=== PATIENT | male | born 1945 | race Caucasian/White ===

== ENCOUNTER 2016-09-05 09:43 | Day surgery (SDC) | payer MEDICARE, OTHER ==
[~2016-09-05] VITALS: Ht 185.4 cm; Wt 87.0 kg
[~2016-09-05 09:43] MED LIST: ASCO500C6 PO; ASPI-973 PO; AZEL205. NS; BISO10TA PO; CHOL100045 PO; COLC0.6T52 PO; ETHA25TA PO; FERR325T40 PO; FLUT1DIS5 IH; FLUT9.9S NS; GLUC-123 PO; IPRA3AMP IH; IPRA4AER IH; KRIL500C PO; LISI10TA PO; Lactated Ringer's 1,000 ML IV SCH; MULT-1018 PO; SODI126M NS; UBID1CAP3 PO
[2016-09-05] MEDS ORDERED: Propofol 10,000 mCg/mL 20 mL Inj ONE (09:44)
[2016-09-05] MEDS ORDERED: Ketamine 10 mg/mL 20 mL Inj ONE (09:44)
[2016-09-05] MEDS ORDERED: fentaNYL-PF 50 mCg/mL 2 mL Inj ONE (09:44)
[2016-09-05 10:08] VITALS: BP 156/99; PULSE 48; RESP 14; O2SAT 98
[2016-09-05 11:43] VITALS: BP 123/83; PULSE 47; RESP 15; O2SAT 96
[2016-09-05 11:53] VITALS: BP 142/80; PULSE 49; RESP 15; O2SAT 97
[2016-09-05 12:03] VITALS: BP 146/86; PULSE 47; RESP 15; O2SAT 97
--- NOTE | 2016-09-05 12:38 | PCM.HPANE ---
Patient Data Date of Service: Sep 05, 2016 Surgeon Admitting Provider: Attending Provider:Rani Nava MD Primary Care Physician:Loan Flores MD Other Provider:Demarcus Jimenez Anesthesia Reason for Visit Anemia Ht/WT & BMI Height (Feet): 6 Height (Inches): 1 Weight (Kilograms): 87 Body Mass Index 25.00 Allergies Coded Allergies: Sulfa (Sulfonamide Antibiotics) (Verified Allergy, Intermediate, Rash, Difficulty breathing, 09/04/16) Past Anesthesia History Anesthesia History: Positive for:: Anesthesia Reactions (states he had "asthma " after surgery), Denies:: Abnormal Airway, Difficult Intubation, Fam Anesthesia Reaction, Fam Malignant Hypertherm, Malignant Hyperthermia Diabetes History Hx Diabetes?: No MRSA MRSA: No Medications Blood Thinner: Aspirin Last Dose Blood Thinner: Sep 03, 2016 Home Meds Incl Beta Danielle: No Reported Medications Gluc/Jorge-MSM#2/C/D3/Tommy/Born (Fdvovxidez-Xwpuscjwbbg-PTV Tab)1 Each Tablet1 Each PO 09/04/16 Colchicine (Colcrys)0.6 Mg Tablet0.6 Mg PO PRN GOUT 09/04/16 Ferrous Sulfate (Iron)325 Mg Asqjrc837 Mg PO DAILY 07/15/16 Ipratropium/Albuterol Sulfate (Iprat-Albut 0.5-3(2.5) mg/3 mL Inhalant Soln)3 Ml Ampul.neb1 IH QAM Ref 0 07/15/16 Sodium Chloride (Saline Nasal Mist)126 Ml Mist1 [place] NS DAILY EACH NOSTRIL 07/15/16 Ubidecarenone/Vitamin E (Co Q-10 50 mg Softgel)1 Each Capsule1 Each PO DAILY 07/15/16 Multivitamin (Multi Vitamin Daily)1 Each Tablet1 Each PO DAILY 06/14/15 Lisinopril 10 Mg Ysjzgm04 Mg PO DAILY 06/14/15 Krill Oil 500 Mg Rkmlntf288 Mg PO DAILY 06/14/15 Fluticasone Propionate (Flonase Allergy Relief)50 Mcg/Actuation [place].susp2 Sprays NS BID EACH NOSTRIL 06/14/15 Fluticasone/Salmeterol (Advair 500-50 Diskus)1 Each Disk.w.dev1 Puff IH BID 06/14/15 Cholecalciferol (Vitamin D3) (Vitamin D)1,000 Unit Capsule1,000 Unit PO DAILY 06/14/15 Azelastine HCl (Astepro)205.5 Mcg/0.137 Ml [place].pump1 [place] NS BID EACH NOSTRIL 06/14/15 Aspirin 81 Mg Wyqpwn42 Mg PO DAILY 06/14/15 Ascorbic Acid (Vitamin C)500 Mg Capsule.er500 Mg PO DAILY 06/14/15 Albuterol/Ipratropium (Combivent Respimat Inhal [place])120 Spr/4 Gm Inhaler1 Puff IH QID #1 INH Ref 0 06/14/15 Ethacrynic Acid (Edecrin)25 Mg Cfkflf04 Mg PO PRN 06/14/15 Bisoprolol Fumarate 10 Mg Tablet5 Mg PO DAILY 06/14/15 History History of ENT Problems?: No HEENT History: Denies:: Abnormal Airway Cataracts Difficult Intubation Dysphagia Hearing Problem Sinus Problem Denture Type: None Teeth Condition: Within Normal Limits Hx of Heart Problems?: Yes Cardiovascular History: Positive for:: Atrial Fibrillation Edema Hypertension Irregular Heartbeat (HX A-fib) Valvular Heart Disease (aortic valvr replacement) Denies:: AICD Cardiac Surgery Chest Pain Congestive Heart Failure Heart Murmur Pacemaker Rheumatic Fever Thrombophlebitis Hx of Respiratory Problem?: Yes Respiratory History: Positive for:: Asthma Chest Surgery (Aortic valve replaced) Denies:: COPD Cough Dyspnea Emphysema Hemoptysis Pneumonia Tuberculosis Hx Neurologic Problems?: No Neurological History: Denies:: Alzheimer's Disease CVA Dementia Dizziness Headaches Parkinson's Disease Seizures Hx of GI Problems?: Yes Hx of Problems?: No Genitourinary History: Denies:: HX of Hemodialysis Kidney Stones Urinary Tract Infection HX of Peritoneal Dialysis: No Male Hx: Denies:: Prostate Problems Scrotal Mass Testicular Surgery Hx Musculoskeletal Problems?: No Musculoskeletal History: Denies:: Back Injury Fibromyalgia Joint Replacement Musculoskeletal Trauma Hx of Psycho/Social Problems?: No Psycho Social History: Denies:: Anxiety Bipolar Disorder Hx Depression Suicide Attempt Hx Surgeries?: Yes (heart valve, melanoma removal) Hx Any Other Health Problems?: No Other History: Positive for:: Hospitalization Denies:: Cancer Endocrine Disease Thyroid Disease History Blood Transfusions: Denies:: Blood Transfusions Hx Diabetes: No Hx Alcohol Use: Yes (2 per day)Hx Substance Use: No Smoking Status: Former Smoker Have You Smoked inLast 12 mo: Yes Stop/Bang Treated for Sleep Apnea?: Yes Do You Have a CPAP Machine?: Yes Risk Assessment Category Category 1A: Patient has history of documented sleep apnea, and HAS NOT received any narcotic, sedative or anesthesia administration during this stay. Category 1B: Patient has history of documented sleep apnea, and HAS received any narcotic , sedative or anesthesia administration during this stay Category 2: Patient has SUSPECTED Obstructive Sleep Apnea, and HAS received any narcotic , sedative or anesthesia administration during this stay. Category 3: Patient has SUSPECTED Obstructive Sleep Apnea and HAS NOT received narcotic, sedative or anesthesia administration during this stay. Category 4: Outpatient in Procedural Areas with known sleep apnea or who screen positive for High Risk via the STOP/BANG questionnaire. Exam Exam Vital Signs Vital Signs Date Time Temp Pulse Resp B/P Pulse Ox O2 Delivery O2 Flow Rate FiO2 09/05/16 12:03 47 15 146/86 97 Room Air 09/05/16 11:53 49 15 142/80 97 Room Air 09/05/16 11:43 47 15 123/83 96 Room Air 09/05/16 10:08 36.3 48 14 156/99 98 Room Air General Appearance: Alert, Oriented X3, Cooperative, No Acute Distress HEENT/AIRWAY: MP 2 (MULITPLE MISSING, FRACTURED DENTITION) Lungs: Clear to Auscultation, Normal Air Movement Heart: Exam Unremarkable, Regular Rate/Rhythm, No Murmurs/Rubs/Gallops Meds/Labs/Diagnostics Admission Meds Current Medications Lactated Ringer's (Lr) 1,000 ml @ 120 mls/hr Q8H20M IV Last administered on t 11:11; Start 09/05/16 at 05:00; Stop 09/05/16 at 13:19 Plan Impression Patient chart reviewed, patient interviewed and anesthestic plan with risks, benefits, and alternatives discussed, and informed consent obtained. NPO per Anesth. Guidelines: Yes ASA Physical Status: ASA3 Severe Disease Anesthetic Plan: GA Bene/Risks/Altern/Consents: Yes HP Complete Prior to Induction: Yes Kalyan Herrera DO Sep 05, 2016 12:38
--- NOTE | 2016-09-05 12:39 | PCM.ANEP1 ---
Post Anesthesia PACU Phase 1 Assessment Date of Service: Sep 05, 2016 Vital Signs Vital Signs Date Time Temp Pulse Resp B/P Pulse Ox O2 Delivery O2 Flow Rate FiO2 09/05/16 12:03 47 15 146/86 97 Room Air 09/05/16 11:53 49 15 142/80 97 Room Air 09/05/16 11:43 47 15 123/83 96 Room Air 09/05/16 10:08 36.3 48 14 156/99 98 Room Air Anesthetic Administered: MAC Level of Alertness: Awake, talking THAO's with Equal Strength: Yes Pain: No Nausea or Vomiting: No CV Function & Hydration Stable: Yes Airway Device: Lungs: Clear to Auscultation, Normal Air Movement PACU Phase 2 Assessment Complications: No Patient Instructions Provided: N/A Kalyan Herrera DO Sep 05, 2016 12:39
--- NOTE | 2016-09-05 16:15 | ENDO ---
[address] [address] ENDOSCOPY PROCEDURE PATIENT: MACKENZIE ADAMS : 1945 MR#: [id number] ADMIT: 09/05/2016 JOB ID: [id number] DATE: 09/05/2016 PROCEDURE: Esophagogastroduodenoscopy (EGD). INDICATION: Anemia. ANESTHESIA: Patient's ASA classification, Mallampati score, and medications as per anesthesia note. INSTRUMENT USED: GIF H 180 J. PROCEDURE DETAILS: After informed consent was obtained, the patient was brought into the GI suite, where he was placed on oxygen via nasal cannula and monitored with continuous pulse oximeter, telemetry, and blood pressure monitoring. A time-out was performed, then he was placed in the left lateral decubitus position and medications were administered for sedation. A bite block was placed. The standard esophagogastroduodenoscopy scope was inserted through the bite block and advanced under direct visualization to the second portion of the duodenum without difficulty. FINDINGS: 1. In the duodenal bulb the mucosa appeared nodular. 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 Multiple random biopsies were obtained. The remainder of the examined portion of the duodenum was otherwise unremarkable. Multiple random biopsies were obtained. 2. Normal-appearing pylorus, antrum, and gastric body. 3. Retroflexed views in the gastric body revealed a normal-appearing cardia and fundus. 4. Normal-appearing GE junction with a regular Z-line at 46 cm. In the proximal esophagus there were pale whitish plaques that were not suctionable, or even with irrigation able to clear. Therefore, multiple biopsies were obtained. The findings were not consistent with esophageal candidiasis. The remainder of the esophageal exam was otherwise unremarkable. IMPRESSION: 1. 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 2. Pale whitish plaques in the mid esophagus. RECOMMENDATIONS: 1. Await biopsy results. 2. Proceed to colonoscopy. PROCEDURE PERFORMED: Colonoscopy. INDICATION: Anemia. ANESTHESIA: Please see above for ASA classification, Mallampati score, and medications. INSTRUMENT USED: PCF H 180 AL PREPARATION QUALITY: Good. PROCEDURE DETAILS: After completion of the EGD exam, the patient was turned and then a digital rectal exam was performed which was unremarkable. The colonoscope was then inserted into the rectum and advanced under direct visualization to the terminal ileum, which was identified by the presence of the ileocecal valve and the villous appearing mucosa of the terminal ileum. Once the terminal ileum was reached, the colonoscope was withdrawn back into the rectum as the mucosa and lumen were examined. In the rectum, retroflexion was performed. Following retroflexion, the remaining air in the rectum was suctioned and the procedure was completed. FINDINGS: 1. In the terminal ileum there were a few aphthous ulcers. The remainder of the mucosa otherwise appeared unremarkable. Multiple biopsies were obtained of the aphthous ulcers. 2. The colonoscope was then withdrawn back into the rectum and the mucosa and lumen were examined. Retroflexion was performed. The mucosa from rectum to cecum appeared normal. IMPRESSION: Aphthous ulcers in the terminal ileum. Otherwise normal exam. RECOMMENDATIONS: 1. Await biopsy results. 2. Avoid NSAIDs if able. 3. Continue to follow H and H closely. 4. Follow up in GI Clinic. COMPLICATIONS: None. ESTIMATED BLOOD LOSS: Less than 5 mL.
--- NOTE | 2016-09-09 13:01 | PATH ---
SURGICAL PATHOLOGY Attending Physician:Kaleb Leong CASE STATUS: Signed Out PATIENT NAME: MACKENZIE ADAMS PID: [id number] : 1945 DATE COLLECTED:09/05/2016 22:07 SPECIMEN: 1: Duodenum, Biopsy 2: Duodenum, Biopsy 3: Esophagus, Biopsy 4: Ileum, Biopsy CLINICAL HISTORY: 1). SECOND DUODENAL BIOPSY 2). DUODENAL BULB BIOPSY 3). MID ESOPHAGUS BIOPSY 4). TERMINAL ILEUM ULCER BIOPSY FINAL DIAGNOSIS: 1. Second Portion Duodenum, Biopsy: Duodenal mucosa with no diagnostic abnormality. The normal delicate villous architecture is maintained. Negative for active inflammation, sprue, dysplasia and malignancy. 2. Duodenal Bulb, Biopsy: Duodenal mucosa with benign gastric heterotopia. Negative for dysplasia and malignancy. 3. Mid Esophagus, Biopsy: Squamous epithelium with no diagnostic abnormality. Intraepithelial eosinophils are not increased. Negative for dysplasia and malignancy. 4. Terminal Ileum, Ulcer, Biopsy: Portions of small bowel and colorectal mucosa with active inflammation; please see comment. There is no evidence of granulomas, dysplasia, or malignancy. ICD10: K31.89 NOTE: Part 4: Histologic sections demonstrate superficial portions of colorectal and small bowel mucosa with mucosal erosion, active inflammation, and cryptitis. Mild crypt architectural distortion is present. There is no evidence of crypt abscesses or granulomas. The differential diagnosis includes an acute self-limited bacterial enterocolitis, NSAID use, the effect of sodium phosphate-containing bowel preparation solutions, and inflammatory bowel disease, in the appropriate clinical context. There is no evidence of dysplasia or malignancy. GROSS DESCRIPTION: The specimen is received in four formalin filled containers labeled with the patient's name. 1). The specimen is labeled "second portion duodenal" and consists of 3 portions of tissue which aggregate to 0.3 x 0.3 x 0.2 CM. The specimen is entirely submitted in cassette 1A. 2). The specimen is labeled "duodenal bulb" and consists of a 0.3 x 0.3 x 0.3 CM portion of tissue which is entirely submitted in cassette 2A. 3). The specimen is labeled "mid esophagus" and consists of 3 portions of tissue which aggregate to 0.5 x 0.3 x 0.2 CM. The specimen is entirely submitted in cassette 3A. 4). The specimen is labeled "terminal ileum ulcer" and consists of 3 portions of tissue which aggregate to 0.3 x 0.3 x 0.2 CM. The specimen is entirely submitted in cassette 4A. 09/05/2016DC ICD-9 CODES: CPT CODES: 1: 18653 2: 24442 3: 73034 4: 40165 Electronically Signed Out Elena Rea MD [facility] [address], [place] [address] Technical component performed at [facility], [address], [place], [address]
== END 2016-09-05 23:59 | disposition home or self-care (01) ==
LOC: END 09:43
PROVIDERS: ATTEND Internal Medicine Gastroenterology
DX: K63.3 Ulcer of intestine (principal); Z86.010 Personal history of colon polyps; D64.9 Anemia, unspecified; I50.9 Heart failure, unspecified; G47.33 Obstructive sleep apnea (adult) (pediatric); I10 Essential (primary) hypertension; J45.909 Unspecified asthma, uncomplicated; I48.91 Unspecified atrial fibrillation; Z87.891 Personal history of nicotine dependence; Z79.82 Long term (current) use of aspirin; Z95.3 Presence of xenogenic heart valve
CPT/HCPCS: 43239; 45380; J3010; J7120